=== PATIENT | female | born 1975 | race Caucasian/White ===

== ENCOUNTER 2016-08-05 14:12 | Emergency (ER) | payer BC ==
--- NOTE | 2016-08-05 14:46 | Emergency Department Record ---
History of Present Illness - General Chief Complaint: Recheck - Other Stated Complaint: D DIMMER TEST ELEVATED Time Seen by Provider: 08/05/16 14:45 Source: Patient Mode of arrival: Ambulatory Limitations: No limitations - History of Present Illness Initial Comments: The patient is here due to being called to go to the ER by her PCP due to an abnormal lab test. She states she has been having some vague KENYON over the last 2 weeks and then caught a cold the last few days. She is coughing mildly and having mild pain with the coughing. Due to those issues she did see her PCP yesterday who did order a D-dimer which was mildly elevated so she was told to go to the ER for treatment. She presently denies any CP, SOB, KENYON or back pain. The patient is on OCP's. Complaint: Other Onset/Timin -: Days(s) Initial Visit For: Other Returns Today for: Called because of abnormal lab/test Symptoms Since Prior Visit: No new symptoms Associated Symptoms: None Treatments Prior to Arrival: Other - Related Data Home Medications Medication Instructions Recorded Confirmed Last Taken Fluoxetine HCl [Prozac] 40 mg PO DAILY 12/07/14 08/05/16 1 Day Ago Levonorgestrel-Ethin Estradiol 1 each PO DAILY 12/07/14 08/05/16 1 Day Ago [Introvale 0.15-0.03 mg Tablet] Pantoprazole Sodium [Protonix] 40 mg PO DAILY 12/07/14 08/05/16 1 Day Ago Previous Rx's Medication Instructions Recorded Epinephrine [Epipen] 0.3 mg IM ASDIR PRN #2 syr 01/07/15 Azithromycin [Zithromax] 250 mg PO ASDIR #6 tab 08/05/16 Allergies Allergy/AdvReac Type Severity Reaction Status Date / Time No Known Drug Allergies Allergy Verified 12/07/14 08:30 Travel Screening - Travel/Exposure Within Last 30 Days Have you traveled within the last 30 days?: No Review of Systems Constitutional: Denies: Chills, Fever Eyes: Denies: Eye discharge ENT: Reports: Congestion Respiratory: Reports: Cough. Denies: Dyspnea, Hemoptysis Cardiovascular: Denies: Chest pain Past Medical History - SOCIAL HISTORY Smoking Status: Never smoker Alcohol Use: None Drug Use: None - RESPIRATORY Hx Respiratory Disorders: No - CARDIOVASCULAR Hx Cardio Disorders: No - NEURO Hx Neuro Disorders: No - GI Hx GI Disorders: Yes Hx Reflux: Yes - Hx Genitourinary Disorders: No - ENDOCRINE Hx Endocrine Disorders: Yes Hx Diabetes: No Hx Thyroid Disease: Yes - MUSCULOSKELETAL Hx Musculoskeletal Disorders: No - PSYCH Hx Psych Problems: Yes Hx Depression: Yes - HEMATOLOGY/ONCOLOGY Hx Hematology/Oncology Disorders: No Family Medical History Any Significant Family History?: No Physical Exam - General General Appearance: Alert, Oriented x3, Cooperative, No acute distress - Head Head exam: Atraumatic, Normocephalic, Normal inspection - Eye Eye exam: Normal appearance, PERRL - Neck Neck exam: Normal inspection, Full ROM. negative: Tenderness - Respiratory Respiratory exam: Normal lung sounds bilaterally. negative: Respiratory distress - Cardiovascular Cardiovascular Exam: Regular rate, Normal rhythm, Normal heart sounds - GI/Abdominal GI/Abdominal exam: Soft, Normal bowel sounds. negative: Tenderness - Extremities Extremities exam: Normal inspection, Full ROM, Normal capillary refill. negative: Tenderness - Neurological Neurological exam: Alert, Normal gait. negative: Abnormal gait, Motor sensory deficit Course Vital Signs 08/05/16 14:36 Temperature 98.0 F Pulse Rate 89 Respiratory 18 Rate Blood Pressure 126/92 Pulse Ox 96 - Reevaluation(s) Reevaluation #1: The patient is doing very well at this time. She denies any pain, KENYON, SOB or any dyspnea. I did explain to her that her workup is all basically normal. She is to F/U with her PCP for further evaluation. 08/05/16 16:30 Medical Decision Making - Data Complexity MDM Data: Labs Ordered and/or Reviewed, X-Ray Ordered and/or Reviewed, EKG Ordered and/or Reviewed - Lab Data Result diagrams: 08/05/16 14:57 08/05/16 14:57 - EKG Data -: EKG Interpreted by Me EKG: No Acute Changes, Normal EKG - Radiology Data Radiology results: Report reviewed (CXR: Neg Chest CT: Neg) Disposition Disposition: Discharge Clinical Impression: Upper respiratory infection, acute Disposition: Home, Self-Care Condition: (1) Good Instructions: Upper Respiratory Infection (ED) Additional Instructions: Please use OTC cough medicine if needed and take the Zpak if needed. Please see your PCP later this week or next week to go over the official CT report. Return to the ER for any problems, or any CP, trouble breathing or any shortness of breath. Prescriptions: Azithromycin [Zithromax] 250 mg PO ASDIR #6 tab Forms: Patient Portal Access Time of Disposition: 16:54
[2016-08-05 15:04] LABS: BASO % 0.5 % (0-6); GRAN % 60.3 % (47-80); HEMATOCRIT 34.3 % (35.0-47.0); HEMOGLOBIN 11.3 gm/dl (11.6-16.0); LYMPH % 30.4 % (16-45); MEAN CORPUSCULAR HEMOGLOBIN 30.6 pg (27-33); MEAN CORPUSCULAR HGB CONC 32.9 g/dl (32-36); MEAN PLATELET VOLUME 8.8 fl (7.4-10.4); MONO % 5.8 % (0-9); PLATELET COUNT 334 K/uL (130-400); RED BLOOD COUNT 3.69 M/uL (3.80-5.40); RED CELL DISTRIBUTION WIDTH 12.6 % (11.5-14.5); WHITE BLOOD COUNT W/O DIFF 11.1 K/uL (4.2-12.2)
[2016-08-05 15:33] LABS: ANION GAP 9.7 (7-16); BLOOD UREA NITROGEN 10 mg/dL (7-17); CARBON DIOXIDE 24.3 mmol/L (22-30); CREATINE PHOSPHOKINASE 92 U/L (30-135); CREATININE 0.9 mg/dL (0.52-1.04); EST GLOMERULAR FILTRATION RATE > 60 ml/min; GLUCOSE,RANDOM 97 mg/dL (70-110)
[2016-08-05 15:43] LABS: CKMB 0.3 ug/L (0-6); TROPONIN I < 0.012 ng/mL (0.00-0.034)
[2016-08-05] MEDS ORDERED: 0.9 % SODIUM CHLORIDE 1,000 ML BAG IV ONE (15:51)
== END 2016-08-05 17:13 | disposition home or self-care (01) ==
LOC: ER 14:12
DX: J06.9 Acute upper respiratory infection, unspecified (principal); R79.89 Other specified abnormal findings of blood chemistry; R05 Cough; R06.00 Dyspnea, unspecified
CPT/HCPCS: 99284 ×2; 82550; 85025; 82553; 84484; 80048; 85379; 71020; 71275; 93005; 93010; Q9967